=== PATIENT | male | born 1970 | race Caucasian/White ===

== ENCOUNTER 2017-05-20 23:01 | Emergency (ER) | payer SELFPAY ==
[~2017-05-20] VITALS: Ht 167.6 cm; Wt 59.0 kg
[2017-05-20] MEDS ORDERED: Clindamycin HC150 MG PO (23:22)
[2017-05-20] MEDS ORDERED: NYST237S MT (23:22)
[2017-05-20] MEDS ORDERED: NAPR550 PO (23:22)
== END 2017-05-20 23:47 | disposition home or self-care (01) ==
LOC: ER 23:01
DX: K04.7 Periapical abscess without sinus (principal); Z88.0 Allergy status to penicillin; Z79.899 Other long term (current) drug therapy; Z79.2 Long term (current) use of antibiotics; F17.210 Nicotine dependence, cigarettes, uncomplicated
CPT/HCPCS: 96372; 99283; J1885